=== PATIENT | female | born 1950 | race Caucasian/White ===

== ENCOUNTER → 2023-04-24 | Day surgery (SDC) | payer MEDICARE ==
[~2023-04-24] VITALS: Ht 162.6 cm; Wt 117.9 kg
[~2023-04-24] MED LIST: ACETYLCHOLINE OPHTH SOLN 1% 2ML (MIOCHOL-E) As Ordered ONE; ALL10TAB3 PO; ARMO90TA PO; ARTH650T17 PO; BENA1TAB24 PO; BSS PLUS XX ONE; CALC600T60 PO; CEFUROXIME 1MG/0.1ML INTRACAMERAL INJ As Ordered ONE; CYCLOPENTOLATE 1% OPHTH SOLN 2ML BTL OD SCH; D-10TAB2 PO; EPINEPHRINE XX ONE; GABA600T4 PO; LIDOCAINE 1% SDV 5ML VIAL As Ordered ONE; LOVA40TA PO; MAGN400T33 PO; MIDAZOLAM INJ 2MG/2ML VIAL As Ordered ONE; OFLOXACIN 0.3 % (OCUFLOX) OPTH SOL 5ML OD SCH; OMEP-173 PO; OMEP40CA4 PO; PHENYLEPHRINE 2.5% OPHTH SOL 2ML OD SCH; PROPARACAINE 0.5% OPHTH SOL 15ML OD ONE; THYR15TA PO; TROPICAMIDE 1% OPHTH SOLN 15ML OD SCH; fentaNYL 100 MCG/2 ML INJECTION As Ordered ONE
[2023-04-24 10:10] VITALS: BP 180/81; TEMP 97.2; O2SAT 94
== END | disposition home or self-care (01) ==
LOC: M SDC 08:46
PROVIDERS: ATTEND Ophthalmology
DX: H25.11 Age-related nuclear cataract, right eye (principal); I10 Essential (primary) hypertension; E78.5 Hyperlipidemia, unspecified; E03.9 Hypothyroidism, unspecified; K21.9 Gastro-esophageal reflux disease without esophagitis; Z79.899 Other long term (current) drug therapy; Z88.8 Allergy status to other drugs, medicaments and biological substances
CPT/HCPCS: 66984; J0697; J2250; J3010; V2632

== ENCOUNTER 2023-05-22 06:30 | Day surgery (SDC) | payer MEDICARE ==
[~2023-05-22] VITALS: Ht 162.6 cm; Wt 118.4 kg
[~2023-05-22 06:30] MED LIST changes: -ACETYLCHOLINE OPHTH SOLN 1% 2ML (MIOCHOL-E) As Ordered ONE; -BSS PLUS XX ONE; -CEFUROXIME 1MG/0.1ML INTRACAMERAL INJ As Ordered ONE; -CYCLOPENTOLATE 1% OPHTH SOLN 2ML BTL OD SCH; +CYCLOPENTOLATE 1% OPHTH SOLN 2ML BTL OS SCH; -EPINEPHRINE XX ONE; -LIDOCAINE 1% SDV 5ML VIAL As Ordered ONE; -MIDAZOLAM INJ 2MG/2ML VIAL As Ordered ONE; -OFLOXACIN 0.3 % (OCUFLOX) OPTH SOL 5ML OD SCH; +OFLOXACIN 0.3 % (OCUFLOX) OPTH SOL 5ML OS SCH; -PHENYLEPHRINE 2.5% OPHTH SOL 2ML OD SCH; +PHENYLEPHRINE 2.5% OPHTH SOL 2ML OS SCH; -PROPARACAINE 0.5% OPHTH SOL 15ML OD ONE; +PROPARACAINE 0.5% OPHTH SOL 15ML OS ONE; -TROPICAMIDE 1% OPHTH SOLN 15ML OD SCH; +TROPICAMIDE 1% OPHTH SOLN 15ML OS SCH; -fentaNYL 100 MCG/2 ML INJECTION As Ordered ONE
[2023-05-22] MEDS ORDERED: CEFUROXIME 1MG/0.1ML INTRACAMERAL INJ As Ordered ONE (06:42)
[2023-05-22] MEDS ORDERED: LIDOCAINE 1% SDV 5ML VIAL As Ordered ONE (06:42)
[2023-05-22] MEDS ORDERED: fentaNYL 100 MCG/2 ML INJECTION As Ordered ONE (07:19)
[2023-05-22] MEDS ORDERED: MIDAZOLAM INJ 2MG/2ML VIAL As Ordered ONE (07:20)
[2023-05-22] MEDS ORDERED: EPINEPHRINE IR ONE (08:00)
[2023-05-22] MEDS ORDERED: BSS PLUS IR ONE (08:00)
[2023-05-22 08:35] VITALS: BP 160/73; TEMP 96.8; O2SAT 97
== END 2023-05-22 08:49 | disposition home or self-care (01) ==
LOC: M SDC 06:30
PROVIDERS: ATTEND Ophthalmology
DX: H25.12 Age-related nuclear cataract, left eye (principal); I10 Essential (primary) hypertension; E78.5 Hyperlipidemia, unspecified; E03.9 Hypothyroidism, unspecified; Z88.6 Allergy status to analgesic agent; Z79.899 Other long term (current) drug therapy
CPT/HCPCS: 66984; J0697; J2250; J3010; V2632